=== PATIENT | male | born 1960 | race Caucasian/White ===

== ENCOUNTER → 2017-11-21 | Day surgery (SDC) | payer OTHER ==
[~2017-11-21] VITALS: Ht 177.8 cm; Wt 89.8 kg
[2017-11-21 09:47] LABS: ABSOLUTE BASOPHIL COUNT 0 /CUMM (0.0-0.2); ABSOLUTE EOSINOPHIL COUNT 0.1 /CUMM (0.0-0.7); ABSOLUTE GRANULOCYTE CT 4.4 /CUMM (1.4-6.5); ABSOLUTE LYMPH COUNT 1.2 /CUMM (1.2-3.4); ABSOLUTE MONOCYTE COUNT 0.5 /CUMM (0.10-0.60); BASOPHIL % 0.5 % (0.0-2.0); EOSINOPHIL % 1.1 % (0-5); GRANULOCYTE % 70.6 % (42.2-75.2); HEMATOCRIT 42.9 % (42-52); MEAN CORPUSCULAR HGB 30.3 PG (27.0-31.0); MEAN CORPUSCULAR HGB CONC 34.6 G/DL (33.0-37.0); MEAN CORPUSCULAR VOLUME 87.6 FL (80.0-94.0); MEAN PLATELET VOLUME 6.5 FL (7.4-10.4); PLATELET COUNT 296 /CUMM (130-400); RBC DISTRIBUTION WIDTH 13.1 % (11.5-14.5); WHITE BLOOD CELL COUNT 6.2 /CUMM (4.8-10.8)
--- NOTE | 2017-11-21 13:15 | RADIOLOGY REPORT ---
EXAMINATION: XR PORTABLE CHEST CLINICAL INFORMATION: Right chest port placement. COMPARISON: Chest fluoroscopy 11/21/2017. TECHNIQUE: Portable frontal view of the chest was obtained. FINDINGS: A right chest port has been placed and the distal tip of the catheter appears to be located within the lower SVC. There is no pneumothorax. Lungs are clear and well expanded. No focal consolidative disease or pleural effusion. The cardiac silhouette and upper mediastinal contours are normal. No acute osseous finding. IMPRESSION: The tip of the right chest port is located within the lower SVC. No pneumothorax.
--- NOTE | 2017-11-21 20:28 | RADIOLOGY REPORT ---
EXAMINATION: CR ABDOMEN/INTRAOPERATIVE FLUOROSCOPY CLINICAL INDICATION: Right Port-A-Cath placement. COMPARISON: None TECHNIQUE/FINDINGS: Fluoroscopic equipment was dedicated to the operating room for the performance of an intraoperative procedure. Several (3) spot films were acquired and are archived in PACS. Please refer to operative notes for procedural detail. FLUOROSCOPY TIME: 0.9 minutes. IMPRESSION: Administrative dictation for intraoperative fluoroscopy and image archiving in PACS. Please refer to operative notes for details.
--- NOTE | 2017-11-23 10:12 | Operative Report ---
Operative/Inv Procedure Report Surgery Date: 11/21/17 Name of Procedure: Fluoroscopic and ultrasound guided insertion of tunneled subcutaneous Port-A- Cath via right internal jugular vein Pre-Operative Diagnosis: Metastatic rectal cancer Needs systemic chemotherapy again Post-Operative Diagnosis: Same Estimated Blood Loss: scant Surgeon/Still Operator Brandy: Bautista PEÑALOZA,Cristóbal Santamaria Anesthesia: local monitored anesthesi Operative/Procedure Note Note: With the patient supine on the OR table, right arm tucked, head not turned, after induction of MAC sedation, the patient's right subclavian area, including the shoulder neck and contralateral chest, were prepped and draped in the usual sterile fashion. After injecting local anesthetic in the right infraclavicular area, at the scar of the previous insertion which was high, skin, subcutaneous to the clavicle, the patient was repositioned to Trendelenburg. Because of its location where I planned to stick, I excised the previous pocket scar and through this elliptical skin incision, putting your right index finger on the sternal notch and thumb pressing down lateral to the curve of the clavicle, I made a small puncture through the underlying scar next to thumb. Then along that line towards the tip of your finger, advance a large-bore needle, bevel towards the feet, on a slip tip 10 mL syringe barrel flat against the deltoid, advancing to bone and then "walking" it down just under the clavicle keeping the needle flat as possible, while maintaining vacuum with the plunger, accessing the subclavian venous blood, then replacing the syringe with a wire, sliding in but with resistance, so I checked the position with fluoroscopy the wire kept curling we tried this a few times it must be the scar from previous insertion but we got flash several times, just couldn't advance the wire with minimum resistance, confirming the position with the C-arm fluoroscope, making sure the wire. So we decided to change the approach to the neck. After turning his head to the left and palpating just above the clavicle near the sternal notch aiming for the apex of the small triangle formed between the 2 heads of the sternal cleidomastoid muscle we injected local anesthetic and used a 20-gauge "finder" needle, aiming a little laterally towards the ipsilateral nipple avoiding the palpable carotid pulse, but I could not access the internal jugular vein until we set up and used the ultrasound here there was scar is well the needle would not easily puncture the vein but we were able to find it and then made a small neck in the skin and advanced large-bore needle again that did not get into the vein easily but eventually we were able to lower the pelvis syringe and advance the wire and confirmed its position to be down the SVC towards the right atrium with the fluoroscope. Next I secured the wire to the drape, measured ( approximately 25 cm), cut and attached the catheter to the port. I then created a pocket in the incision beneath the clavicle using cautery and an [facility] retractor, it was deepened with cautery and a space was developed inferiorly under the subcutaneous layer. The Port-A-Cath was laid in there and secured in [address] with 2-0 Prolene through the holes in the port, the sutures were kept loose on snaps at this point. Next the catheter was tunneled up subcutaneously with the provided tunneler up over the clavicle and brought out through the stick site next to the wire. Then the dilator with the sheath together was gently advanced over the wire to you could feel it get into the vein and continued straight down towards the heart, then back out just the dilator, then advance the sheath, eventually pulling out the dilator and wire completely. Then the catheter was put into the sheath as far as it'll go then while holding that knuckle down with DeBakey's, gently peel-away the sheath with your head start assistant teacher. Now the correct position of the catheter was confirmed with the fluoroscope, using a Mariano needle and heparinized saline solution, the catheter was first aspirated then flushed with approximately 3 mL's, with minimal resistance. The patient was repositioned to neutral, after tying down the 2 Prolenes, the larger incision was closed in layers, 3-0 Vicryl deep and 4-0 subcuticular Monocryl for the skin, and one subcuticular Monocryl for the stick site. Both areas were covered with Mastisol Steri-Strips Telfa and Tegaderm. Chest x-ray was ordered to be done in the recovery room. Lap and sponge counts were correct. Wound expectancy was clean, IV fluids crystalloid, complications none, patient tolerated the procedure well was awakened and returned to the recovery room in satisfactory condition.
== END ==
LOC: STS 02:33
PROVIDERS: Surgery
DX: C78.7 Secondary malignant neoplasm of liver and intrahepatic bile duct (principal); C20 Malignant neoplasm of rectum; I10 Essential (primary) hypertension; J44.9 Chronic obstructive pulmonary disease, unspecified; Z87.891 Personal history of nicotine dependence
CPT/HCPCS: 36415; 71045; 93005; 93010; C1751; J0690; J1644; J2250